=== PATIENT | male | born 1980 | race Caucasian/White ===

== ENCOUNTER 2016-05-04 17:59 | Emergency (ER) | payer MEDICAID ==
--- NOTE | ~2016-05-04 | ER ---
[facility] AGE: 36 Y [address] ROOM: [place] [address] LOCATION: ED ADMIT DATE: 05/04/2016 ER/Outpatient Report DISCHARGE DATE: 05/04/2016 FAMILY PHYSICIAN: PHYSICIAN, NO ATTENDING PHYSICIAN: Moe Blunt CHIEF COMPLAINT: Abdominal pain, chest pain, and shortness of breath. TIME OF THE PATIENT ARRIVAL: 1759 hours. TIME OF THE PATIENT EVALUATION: 1820 hours. HISTORY OF PRESENT ILLNESS: This is a 36-year-old male who presents to the ER states that he is traveling through from [place] to [place] carrying a load on the semi. He states he has been having troubles with an upper respiratory infection and he was prescribed Z-Daniel 3 or 4 days ago. The patient states he also has a history of COPD and asthma and has been taking his inhaler and nebulizers with no relief of his symptoms. He states he also has a history of cardiac disease and was recently rechecked a week and a half ago in regards to his heart and was told that his heart looks okay. He does have a history of 3 stents and he has a defibrillator in his chest. The patient states approximately 90 minutes ago he started having some abdominal pain and it is located all over his abdomen. He states like it is shooting fire out of his bottom. He states he has had small little bowel movements. He states that having bowel movements does not change his pain. His pain does not radiate into his back. The patient does not know if he has been running any fevers during his drive out here and he does have nausea and did have an emesis prior to arrival. ALLERGIES: IBUPROFEN. MEDICATIONS: "I do not remember." PAST MEDICAL HISTORY: 1. Insulin-dependent diabetic. 2. COPD. 3. Asthma. 4. Heart disease. 5. Hypertension. PATIENT'S NAME: ARTEMIO [facility] AGE: 36 Y [address] ROOM: [place] [address] LOCATION: ED ADMIT DATE: 05/04/2016 ER/Outpatient Report DISCHARGE DATE: 05/04/2016 FAMILY PHYSICIAN: PHYSICIAN, NO ATTENDING PHYSICIAN: Moe Blunt PAST SURGERIES: Stents x3 and defibrillator placement. SOCIAL HISTORY: He smokes half-pack a day. Denies any drug or alcohol use. REVIEW OF SYSTEMS: A 10-point review of systems was completed and was negative with the exception of those discussed in the HPI. PHYSICAL EXAMINATION: VITAL SIGNS: Height 5 feet, 11 inches stated, weight 131.4 kg, taken, blood pressure is 110/55, pulse 103, respirations 22, temperature 97 degrees tympanically, and saturations 94% on room air. [place] Coma Score is 15. GENERAL: An alert morbidly obese male in moderate distress, secondary to his breathing. HEENT: Head: Normocephalic. He does display moist mucous membranes. NECK: Supple. No lymphadenopathy. LUNGS: Diminished and wheezy throughout. HEART: Tachycardic. Normal rhythm. No lifts, thrills, or murmurs. ABDOMEN: Morbidly obese. He has generalized tenderness in all 4 quadrants with palpation. He has good bowel sounds throughout. No masses are palpated. EXTREMITIES: No clubbing or cyanosis noted. LABORATORY DATA: CBC: White count is 4.5, hemoglobin is 14.8, and platelets 162. ANC is 2.2. INR is 1.0. CMS: Sodium 134, glucose 228, creatinine 1.6, estimated GFR is 49; otherwise, unremarkable, magnesium is 1.5, amylase is 47, lipase 82. CPK is 432, CK-MB is 4.3, troponin I is less than 0.040, pro-BNP is 140. Two hour ehpes-ey-bihs: CPK is 419, CK-MB is 3.6, troponin I is less than 0.040. D- dimer is 2.05. ABG was a venous sample, pH 7.40, pCO2 is 42, lactate is 2.28, procalcitonin was less than 0.05. Influenza A and B were both negative. EKG shows sinus rhythm. He does have some abnormal R-waves noted. Chest x-ray was negative for any infiltrate. CT scan of the abdomen was done without contrast shows no acute abnormality and was reported by Radiology. EMERGENCY DEPARTMENT COURSE: We did start an IV here in the emergency room and the patient was given 2 DuoNeb breathing treatments [id number] and we did give him initially 125 mg of Solu-Medrol and a total of 4 mg of morphine for his pain. The patient was also given 4 mg of Zofran. The patient's breathing status did improve. The patient was very rude with the staff during his stay here. I did discuss the patient's care with Dr. Marie and it was recommended to the patient that he spend the night here due to his elevated D-dimer and thus not being able to do a CAT scan study due to his low GFR. Nuclear scan was called and they do not PATIENT'S NAME: TIMMY ULLOA [facility] AGE: 36 Y [address] ROOM: [place] [address] LOCATION: [facility] ADMIT DATE: 05/04/2016 ER/Outpatient Report DISCHARGE DATE: 05/04/2016 FAMILY PHYSICIAN: PHYSICIAN, NO ATTENDING PHYSICIAN: Moe Blunt have the nuclear medicines available this evening, but they will in the morning. The patient states that he would stick around for the second set of enzymes, we did draw those, and then the patient became upset, ripped his IV out, and left the ER. The patient did not sign any AMA forms prior to dismissal. MYNOR LEPE PA-C FOR MD TAMARA GIFFORD/lisa /[id number] d: 05/05/16 0058 t: 05/13/16 1732, OUTPATIENT REPORT
[2016-05-04 19:00] LABS: PCO2 42 mmHg (35-45)
[2016-05-04 19:03] LABS: BICARBONATE 25.9 mmol/L (18.0-23.0); LACTATE 2.28 mEq/L (0.50-1.60); PO2 52 mmHg (80-90)
[2016-05-04 19:13] LABS: BASOPHIL % 0.4 %; EOSINOPHIL # 0.1 K/uL (0.0-0.5); EOSINOPHIL % 1.8 %; HEMATOCRIT 44.6 % (37.0-53.0); HEMOGLOBIN 14.8 g/dL (12.0-17.0); IMMATURE GRANULOCYTE % 0.4 %; LYMPHOCYTE # 1.4 K/uL (0.8-4.0); LYMPHOCYTE % 31.4 %; MCHC 33.2 gm/dL (32.0-36.5); MCV 90.3 fl (83.0-98.0); MONOCYTE # 0.8 K/uL (0.0-1.0); MONOCYTE % 17.3 %; MPV 10.7 fl (9.4-12.4); NEUTROPHIL # (ANC) 2.2 K/uL (1.4-9.0); NEUTROPHIL % 48.7 %; NRBC % 0 /100WBC (0-0.00); PLATELET COUNT 162 K/uL (150-450); RBC 4.94 M/uL (4.00-6.00); RDW-CV 12.1 % (11.9-14.6); WBC 4.5 K/uL (4.0-11.0)
[2016-05-04 19:21] LABS: PROTIME 10.8 SECONDS (9.6-11.1); PTT 26 SECONDS (25-32)
[2016-05-04 19:29] LABS: ALBUMIN 3.7 gm/dL (3.5-5.0); ALK PHOS 81 IU/L (33-138); ALT 69 IU/L (12-78); ANION GAP 14.2 (10.0-19.0); AST 32 IU/L (10-40); BLOOD UREA NITROGEN 18 mg/dL (6-24); CALCIUM 8.8 mg/dL (8.5-10.5); CHLORIDE 98 mMol/L (96-110); CO2 26 mMol/L (22-32); CPK 432 IU/L (35-332); CREATININE 1.6 mg/dL (0.6-1.3); ESTIMATED GFR (MDRD EQUATION) 49; MAGNESIUM 1.5 mg/dL (1.3-2.6); POTASSIUM 4.2 mMol/L (3.7-5.1); SODIUM 134 mMol/L (135-145); TOTAL BILIRUBIN 0.6 mg/dL (0.0-1.5); TOTAL PROTEIN 7.3 g/dL (6.0-8.4)
[2016-05-04 21:43] LABS: CPK 419 IU/L (35-332)
== END 2016-05-04 21:30 | disposition left against medical advice (07) ==
LOC: GMED 17:59
PROVIDERS: Physician Assistant Medical
DX: R10.84 Generalized abdominal pain (principal); R07.9 Chest pain, unspecified; R06.02 Shortness of breath; E11.9 Type 2 diabetes mellitus without complications; J44.9 Chronic obstructive pulmonary disease, unspecified; J45.909 Unspecified asthma, uncomplicated; I10 Essential (primary) hypertension; F17.210 Nicotine dependence, cigarettes, uncomplicated
CPT/HCPCS: J2270; J2405; J2930; J7030